=== PATIENT | female | born 1995 | race Caucasian/White ===

== ENCOUNTER → 2020-06-04 11:47 | Outpatient (BNVA) | payer BC, SELFPAY | PROVIDERS: Family Provider Family Medicine; PCP Family Medicine; Visit Provider Nurse Practitioner Family | DX: Z11.59 Encounter for screening for other viral diseases (principal) | CPT/HCPCS: 87635 ==

== ENCOUNTER 2023-02-23 18:34 | Emergency (ER) | payer BC, SELFPAY ==
[2023-02-23 18:38] VITALS: BP 135/91; PULSE 81; RESP 14; TEMP 36.7; O2SAT 98; BMI 31.4
--- NOTE | 2023-02-23 19:08 | ED_ITS ---
HPI - Dental/Oral General: Chief complaint: Dental/Oral Stated complaint: Tooth Pain Time Seen by Provider: 02/23/23 18:56 History of Present Illness: 28-year-old female comes in today with 3-day history of increasing pain and discomfort to the right jaw. Patient had been seen at urgent care and was referred to the ER for further evaluation and treatment to rule out retropharyngeal abscess. Patient appears nontoxic. Airway is intact. No significant facial swelling is noted. Patient is managing secretions well. Review of Systems General: Reports: 10 or more systems reviewed and unremarkable except in HPI and below ENMT: Reports: throat pain and dental pain Physical Exam Const: COMMON NORMALS: alert HENMT: COMMON NORMALS: normocephalic and Normal external nose present HEAD & SCALP: normocephalic NOSE: Normal external nose present MOUTH: Normal oral and palatal mucosa present, tongue normal and other (Sublingual area no significant swelling) TEETH & GINGIVA: Yes poor dentition (Significant decay to the third and second molar right lower jaw) THROAT: posterior oropharynx normal Neck/C-Spine: OTHER: Mild lymph swelling right anterior cervical chain Resp: COMMON NORMALS: normal respiratory effort Cardio: COMMON NORMALS: regular rate and regular rhythm RATE: regular rate RHYTHM: regular rhythm Back/Pelvis: COMMON NORMALS: thoracic and lumbar spine normal to inspection Extremity: COMMON NORMALS: full ROM Neuro: SENSORIUM/ORIENTATION: Yes alert Skin: COMMON NORMALS: turgor normal GENERAL SKIN EXAM: turgor normal Course Vital Signs: Vital signs: Vital Signs Temperature 98.0 F 02/23/23 18:38 Pulse Rate 81 02/23/23 18:38 Respiratory Rate 14 02/23/23 18:38 Blood Pressure 135/91 02/23/23 18:38 Pulse Oximetry 98 02/23/23 18:38 Oxygen Delivery Me thod Room Air 02/23/23 18:38 MDM - Dental/Oral Medical Decision Making 28-year-old female comes in today for complaints of of sore throat and dental pain. Patient reports that the pain starts in her jaw along the third molar of the right lower jaw. Patient reports some discomfort with swallowing. Posterior oropharynx is symmetrical without any signs of significant swelling. Sublingual area notes no significant swelling or abnormality. Patient has significant decay to the second and third molar of the right lower jaw. Gingiva is erythematous and mildly swollen. Patient is managing secretions well. Patient does have some mild lymph node enlargement along the anterior cervical chain. Differential diagnosis includes but not limited to dental abscess, dental caries, retropharyngeal abscess. No obvious signs of severe abscess is noted. Patient's mother was really concerned about a retropharyngeal abscess as it was suggested by clinician at the urgent care center to have a CT scan done of the neck emergently. CT noted a small dental abscess to the right jawline no retropharyngeal abscess. Reviewed exam with patient with recommendations for treatment and follow-up. Patient and family reported understanding agreed to plan. Lab Data Radiology Impressions Neck CT 02/23/23 19:49 IMPRESSION: 1. No CT findings suggestive of retropharyngeal abscess. Findings suggestive of abscess involving the right 1st and 2nd lower molar teeth. Dental caries involving the right 2nd and 3rd lower molar teeth and the left 3rd molar tooth. 2. Reactive lymph nodes in the jugulodigastric jed regions. 3. Ectasia of the ascending thoracic aorta measuring 3.2 cm. Discharge Plan Discharge Patient Disposition: Home Clinical Impression: Dental abscess Condition: Stable Prescriptions: New hydrocodone-acetaminophen 5-325 mg tablet 1 tab PO Q8H PRN (Reason: pain (scale score 7-10)) Qty: 10 0RF clindamycin HCl 300 mg capsule 300 mg PO QID 7 Days Qty: 28 0RF Lidocaine Viscous 2 % solution 1 applic mucous membrane Q3H PRN (Reason: pain) Qty: 100 0RF Discharge Orders: Discharge ED (Routine); Ordered 02/23/23 Ordered By: Stevan Will Referrals: Karthik Trejo DO [Primary Care Provider] - Patient Instructions: Dental Abscess (ED), Opioid Safety Activity Restrictions/Additional Instructions: Take antibiotic clindamycin 300 mg 4 times a day for the next 7 days. Use acetaminophen and ibuprofen to control pain. Use hydrocodone for severe pain. Apply lidocaine viscous to a cottonball or swab and place into the dental tooth carry to directly numb the nerve. Drink plenty of water and fluids. Follow-up with primary care for further instructions. Follow-up with dentist for definitive care. Return to ER for new concerns or worsening symptoms such as inability to swallow, difficulty breathing, or new concerns. Coding Level of Care Code ED [employer] for Radha Crenshaw
[2023-02-23] MEDS: dexamethasone 10 mg/mL INJ IM (19:33)
[2023-02-23] MEDS: HYDROcodone-acetaminophen 5-325 mg Tablet 1 TAB PO (19:33)
[2023-02-23] MEDS: ketorolac 30 mg/mL INJ IM (19:34)
--- NOTE | 2023-02-23 19:49 | CTR_ITS ---
PROCEDURE INFORMATION: Exam: CT Neck With Contrast Exam date and time: 02/23/2023 8:02 PM Age: 28 years old Clinical indication: Other: Dental pain; Additional info: R/O retropharyngeal abscess TECHNIQUE: Imaging protocol: Computed tomography of the neck with contrast. Radiation optimization: All CT scans at this facility use at least one of these dose optimization techniques: automated exposure control; mA and/or kV adjustment per patient size (includes targeted exams where dose is matched to clinical indication); or iterative reconstruction. Contrast material: OMNI 350; Contrast volume: 80 ml; Contrast route: INTRAVENOUS (IV); REPORTING DATA: Count of CT and Cardiac NM exams in prior 12 months: This patient has received 0 known CTs and 0 known cardiac nuclear medicine studies in the 12 months prior to the current study. COMPARISON: No relevant prior studies available. RADIATION DOSE METRICS: Total DLP (mGy-cm): 284.02 FINDINGS: Dental: Periapical lucency surrounding the 1st and 2nd right lower molar teeth. Dental caries involving the right 2nd and 3rd teeth in the 3rd left molar tooth. Dental mehdi involving the left upper molar teeth. Incomplete eruption of the 3rd right upper molar tooth. Pharynx: Small calcifications within the palatine tonsils likely related to chronic tonsillitis. Mild prominence of the lymphoid tissue in the nasopharynx . Larynx: Unremarkable. Epiglottis is normal. Prevertebral and retropharyngeal spaces: Unremarkable. Salivary glands: Normal. Glands are normal in size. Thyroid: Normal. No enlarged or calcified nodules. Lymph nodes: There are prominent lymph nodes in the jugulodigastric jed region likely reactive Trachea: Visualized trachea is unremarkable. Lungs: Unremarkable as visualized. Bones/joints: Unremarkable. No acute fracture. Vasculature: Ectasia of the ascending thoracic aorta measuring 3.2 cm. Soft tissues: Unremarkable. No significant soft tissue swelling. CT/CT neck w con* [id number] IMPRESSION: 1. No CT findings suggestive of retropharyngeal abscess. Findings suggestive of abscess involving the right 1st and 2nd lower molar teeth. Dental caries involving the right 2nd and 3rd lower molar teeth and the left 3rd molar tooth. 2. Reactive lymph nodes in the jugulodigastric jed regions. 3. Ectasia of the ascending thoracic aorta measuring 3.2 cm.
[2023-02-23] MEDS: iohexol 350 mg/mL 500 mL Btl (per mL) IV (20:04)
[2023-02-23] MEDS: clindamycin 150 mg Capsule 300 MG PO (20:09)
[2023-02-23] MEDS: HYDROcodone-acetaminophen 7.5-325 mg Tablet 1 TAB PO (21:21)
== END 2023-02-23 21:21 | disposition home or self-care (01) ==
PROVIDERS: Emergency Provider Nurse Practitioner Family; PCP Electrodiagnostic Medicine
DX: K04.7 Periapical abscess without sinus (principal)
CPT/HCPCS: 70491; 96372; 99285; J1100; J1885; Q9967

== ENCOUNTER → 2024-11-04 14:28 | Outpatient (BNVA) | payer BC, SELFPAY | PROVIDERS: PCP Electrodiagnostic Medicine; Visit Provider Family Medicine | DX: Z13.6 Encounter for screening for cardiovascular disorders (principal) | CPT/HCPCS: 80053; 84443; 85025 ==

== ENCOUNTER → 2025-01-13 09:18 | Outpatient (BNVA) | payer BC, SELFPAY | PROVIDERS: PCP Family Medicine; Visit Provider Family Medicine | DX: Z01.419 Encounter for gynecological examination (general) (routine) without abnormal findings (principal) | CPT/HCPCS: 87624 ==